=== PATIENT | male | born 1950 | race Caucasian/White ===

== ENCOUNTER 2017-02-12 17:16 | Emergency (ER) | payer OTHER ==
[~2017-02-12] VITALS: Ht 160 cm; Wt 92.3 kg
[~2017-02-12 17:16] MED LIST: ALT10 PO; ASPCH81; GLC500 PO; LOVA40TA4 PO; MCR5 PO
[2017-02-12 17:21] VITALS: TEMP 37.2; Ht 160 cm; Wt 92.3 kg
[2017-02-12] MEDS ORDERED: XYLOCAINE 1%/SOD BICARB 20 ML VIAL INFIL ONE (17:30)
[2017-02-12] MEDS ORDERED: BUPIVACAINE 0.5 % 5 MG/1 ML MPF 30ML VIAL INFIL ONE (17:30)
[2017-02-12] MEDS ORDERED: DIPHTHERIA/TETANUS/PERTUSSIS 0.5 ML SYR/VIAL IM. ONE (17:30)
--- NOTE | 2017-02-12 17:35 | EMERGENCY ROOM VISIT NOTE ---
ED Visit Note First contact with patient: 17:26 CHIEF COMPLAINT: Left thumb laceration HISTORY OF PRESENT ILLNESS: This 66-year-old male patient presents to the emergency department ambulatory after cutting the left thumb while using a table saw at home just prior to arrival. The bleeding has and not stopped. Denies weakness or numbness of the thumb. The patient denies any pain. The patient denies any other injuries. The patient's Tetanus shot is not up to date. REVIEW OF SYSTEMS: A 6 system review of systems was completed with positives and pertinent negatives listed in the HPI. ALLERGIES: No known drug allergies MEDICATIONS: See nursing notes PMH: Diabetes, hyperlipidemia, hypertension SOCIAL HISTORY: The patient lives locally with family. He does not smoke PHYSICAL EXAM: Vital Signs: Reviewed Nurse's notes, vital signs stable. GENERAL : To 6-year-old male, in no acute distress, well-developed, well-nourished. SKIN: There is a 3.5 cm long jagged laceration on the palmar aspect of the left thumb. The edges gape apart with traction. There is no foreign material in the wound and it looks clean. There is moderate bleeding. No deep structures such as tendons, bones, or nerves are seen in the base of the wound. Normal strength and movement of the finger. Capillary refill less than 2 seconds. Decreased sensation to sharp distal to the wound. EMERGENCY DEPARTMENT COURSE: I examined the patient. Using sterile technique the wound was cleaned with Betadine. The area was sterilely draped. 3 mL of 0.5 % Marcaine/3 ml of 1% buffered lidocaine was used to anesthetize the laceration on the thumb via digital block. Once the patient was numb, the wound was copiously irrigated under pressure with sterile saline. The wound was explored and the tendon is visible in the base of the wound and appears to have a very small and superficial laceration. The laceration was repaired using 13 simple interrupted 5-0 nylon sutures with the wound edges being well approximated. The patient tolerated the procedure well. The bleeding stopped. The area was cleaned with sterile saline and dressed with bacitracin ointment and bandage. The patient was given Td immunization. The patient was discharged home in good condition. The patient presents with a left thumb laceration secondary to a table saw. There is skin avulsion. An x-ray was obtained does not reveal any obvious bony abnormality. The patient does have some numbness along the lateral aspect of the thumb. The patient seems to have good strength and range of motion. The tendon is visible in the base of the wound and appears to have a very small shellie. The wound was copiously irrigated. The wound edges were approximated as well as possible as above. I discussed the case with Dr. Singh who is in agreement with the above treatment plan. He recommends follow-up with Dr. Pascual. The patient was placed in a metal splint. The patient was also seen and examined by who agrees with the assessment and treatment plan. LEFT FINGER(S) MIN 2 VIEWS ROUTINE CLINICAL HISTORY: left thumb laceration, tablesaw trauma. Pain. COMPARISON: None. DISCUSSION: Moderate degenerative change of the interphalangeal joint. No acute bony abnormality. Cortical margins are intact. There is no evidence for soft tissue swelling. Soft tissue laceration over the distal phalanx IMPRESSION: Degenerative change. No acute bony abnormality. Soft tissue laceration overlying the distal phalanx DISCHARGE INSTRUCTIONS & TREATMENT: Keep wound clean and dry. Do not allow any crusting or dried blood to accumulate on sutures. If this occurs, use a 1:1 solution of hydrogen peroxide/water on a Q-tip to clean the wound. Use an antibiotic ointment for 3-4 days, then let wound dry. Suture removal in 10-12 days. Return sooner for any signs of infection (increasing redness, swelling, drainage). Ice and elevate for swelling and pain. Ibuprofen 600 mg every 6 hrs for pain. Keep covered when in sun until sutures removed then SPF 50 or higher for one year. Vitamin E oil if desired two weeks after suture removal for reduction of scar. Wear the splint until seen by orthopedics Keflex 4 times daily for 7 days to help prevent infection Contact orthopedics first thing in the morning to schedule a follow-up appointment for further evaluation and management Return with any worsening symptoms Current/Historical Medications Scheduled Aspirin (Aspirin Tab-Chewable *), DAILY Cephalexin Monohydrate (Keflex), 500 MG PO QID Glyburide (Diabeta *), 5 MG PO DAILY Lovastatin (Mevacor), 40 MG PO DAILY Metformin HCL (Glucophage *), 1,000 MG PO BID Ramipril (Altace *), 10 MG PO BID Allergies Coded Allergies: No Known Allergies (Unverified , 02/02/12) Vital Signs Date Time Temp Pulse Resp B/P Pulse Ox O2 Delivery O2 Flow Rate FiO2 02/12/17 19:42 72 18 148/86 96 Room Air 02/12/17 17:21 37.2 86 20 190/97 98 Room Air Medications Administered Medications (Trade) Dose Ordered Sig/Tania Route Start Time Stop Time Status Last Admin Dose Admin Diphtheria/ Pertussis/Tetanus Vacc (Adacel Inj) 0.5 ml ONCE ONCE IM. 02/12/17 17:30 02/12/17 17:32 DC 02/12/17 18:01 0.5 ML Cephalexin Monohydrate (Keflex 500MG Home Pack) 1 homepack NOW ONCE PO 02/12/17 19:00 02/12/17 19:01 DC 02/12/17 19:31 1 HOMEPACK Departure Information Impression Primary Impression: Laceration of finger, complicated Dispostion Home / Self-Care Condition GOOD Prescriptions Cephalexin Monohydrate (Keflex) 500 Mg Cap 500 MG PO QID for 7 Days, #28 CAP Prov: Marlene Zepeda PA-C 02/12/17 Referrals Carrie Jackson M.D. (MEDICAL) (PCP) Ted Pascual MD Patient Instructions ED Laceration All, [facility] Additional Instructions Keep wound clean and dry. Do not allow any crusting or dried blood to accumulate on sutures. If this occurs, use a 1:1 solution of hydrogen peroxide/ water on a Q-tip to clean the wound. Use an antibiotic ointment for 3-4 days, then let wound dry. Suture removal in 10-12 days. Return sooner for any signs of infection (increasing redness, swelling, drainage). Ice and elevate for swelling and pain. Ibuprofen 600 mg every 6 hrs for pain. Keep covered when in sun until sutures removed then SPF 50 or higher for one year. Vitamin E oil if desired two weeks after suture removal for reduction of scar. Wear the splint until seen by orthopedics Keflex 4 times daily for 7 days to help prevent infection Contact orthopedics first thing in the morning to schedule a follow-up appointment for further evaluation and management Return with any worsening symptoms
--- NOTE | 2017-02-12 18:03 | DIAGNOSTIC IMAGING REPORT ---
LEFT FINGER(S) MIN 2 VIEWS ROUTINE CLINICAL HISTORY: left thumb laceration, tablesaw trauma. Pain. COMPARISON: None. DISCUSSION: Moderate degenerative change of the interphalangeal joint. No acute bony abnormality. Cortical margins are intact. There is no evidence for soft tissue swelling. Soft tissue laceration over the distal phalanx IMPRESSION: Degenerative change. No acute bony abnormality. Soft tissue laceration overlying the distal phalanx Electronically signed by: Olayinka Bo M.D. 02/12/2017 6:02 PM Dictated Date/Time: 02/12/2017 6:01 PM
[2017-02-12] MEDS ORDERED: CEPHALEXIN 500MG HOME PACK 1 EA BTL PO ONE (19:00)
--- NOTE | 2017-02-12 19:00 | EMERGENCY ROOM VISIT NOTE ---
ED Visit Note First contact with patient: 17:26 I saw this patient in conjunction with Shabana Zepeda PA-C. I agree with her decision making and treatment plan.
[2017-02-12] MEDS ORDERED: CEPH500C PO (19:05)
[2017-02-12 19:42] VITALS: BP 148/86; PULSE 72; O2SAT 96
== END 2017-02-12 19:14 | disposition home or self-care (01) ==
LOC: C.EDB 17:17 → C.EDD 19:14
DX: S61.012A Laceration without foreign body of left thumb without damage to nail, initial encounter (principal); W31.2XXA Contact with powered woodworking and forming machines, initial encounter; E11.9 Type 2 diabetes mellitus without complications; I10 Essential (primary) hypertension; E78.5 Hyperlipidemia, unspecified; Z23 Encounter for immunization

== ENCOUNTER → 2018-01-19 | Outpatient (CLI) | payer OTHER ==
[~2018-01-19] MED LIST changes: +GADAVIST IV PRN
--- NOTE | 2018-01-19 14:17 | DIAGNOSTIC IMAGING REPORT ---
PROSTATE MRI COMBO CLINICAL HISTORY: Elevated serum PSA. Benign prostatic aplasia. COMPARISON STUDY: No priors. TECHNIQUE: Multisequence, multiplanar MR imaging of the prostate was performed before and after the administration of intravenous contrast. Additional postprocessing was performed on a separate [employer] workstation by the radiologist for 3-D volumetric segmentation of the prostate and contouring of region(s) of interest (AKIL) for targeting. IV contrast: 8.5 cc of Gadavist. FINDINGS: Prostate: The prostate measures 5.3 cm in transverse diameter ([employer] prostate boundary segmentation volume 57 mL). Moderate to severe changes of benign prostatic hyperplasia are identified. Precontrast T1 weighted imaging demonstrates no evidence of intrinsic T1 hyperintensity to suggest hemorrhage. No concerning prostate lesion was identified. Seminal vesicles normal. Bladder: The bladder wall is mildly thickened and trabeculated consistent with chronic outlet obstruction. Bowel: Visualized portion of the rectum normal. Peritoneum: There is trace free fluid in the pelvis. Lymph nodes: No lymphadenopathy in the visualized portion of the pelvis. Vasculature: Iliac vessels patent. Abdominal wall: Normal. Osseous structures: Normal bone marrow signal intensity. IMPRESSION: 1. No concerning lesion is identified by MRI . PI-RADS: 2. Clinically significant cancer is unlikely to be present. This lesion has been segmented for targeted biopsy. 2. Benign prostatic hyperplasia. Electronically signed by: Felix Cardoza M.D. 01/19/2018 2:16 PM Dictated Date/Time: 01/19/2018 2:00 PM
== END | disposition home or self-care (01) ==
LOC: C.MRIBC 11:44
PROVIDERS: ATTEND Urology
DX: R97.20 Elevated prostate specific antigen [PSA] (principal)

== ENCOUNTER → 2018-01-21 | Outpatient (CLI) | payer OTHER ==
[~2018-01-21] MED LIST changes: -GADAVIST IV PRN
== END | disposition home or self-care (01) ==
LOC: C.LABBFT 10:46
PROVIDERS: ATTEND Urology
DX: R97.20 Elevated prostate specific antigen [PSA] (principal)

== ENCOUNTER → 2018-01-25 | Outpatient (CLI) | payer OTHER ==
[2018-01-25 12:39] LABS: BLOOD UREA NITROGEN 12 mg/dl (7-18); CREATININE 1.01 mg/dl (0.60-1.40)
== END | disposition home or self-care (01) ==
LOC: C.LABBFT 10:39
PROVIDERS: ATTEND Urology
DX: R97.20 Elevated prostate specific antigen [PSA] (principal)